=== PATIENT | female | born 1995 ===

== ENCOUNTER 2020-06-22 16:00 | Outpatient (REF) | payer OTHER, SELFPAY | END 2020-06-22 16:01 | disposition home or self-care (01) | LOC: HO.LAB 16:00 | PROVIDERS: Visit Provider Internal Medicine | DX: Z20.828 Contact with and (suspected) exposure to other viral communicable diseases (principal) | CPT/HCPCS: C9803; U0003 ==

== ENCOUNTER 2020-08-06 00:10 | Emergency (ER) | payer OTHER, SELFPAY ==
[2020-08-06 01:15] VITALS: PULSE 102; RESP 100; TEMP 37.3; BMI 26.9
--- NOTE | 2020-08-06 01:46 | ED_ITS ---
HPI - URI/Sore Throat General Chief Complaint: Fever Stated Complaint: COVID SYMPTOMS Time Seen by Provider: 08/06/20 01:45 Source: patient Mode of arrival: ambulatory Limitations: no limitations History of Present Illness HPI Narrative: Patient been feeling weak body aches stuffy nose for last 2 days had low-grade fever temperature of 99 degrees today no COVID-19 contact no shortness of breath no cough MD elicited complaint: fever (Subjective), rhinorrhea and nasal congestion Related Data Allergies Allergy/AdvReac Type Severity Reaction Status Date / Time penicillin G Allergy Unknown Verified 01/27/20 00:00 Penicillins [PENICILLINS] Allergy Unknown UNKNOWN Unverified 04/20/20 19:37 Review of Systems Review of Systems: Yes all other systems are reviewed and are negative [facility] Past Medical History Medical History Asthma Social History Social History Advance Directives: No Advance Directives Information Provided: No Physical Exam Vital Signs: Vital Signs: Last Vital Signs Temp 99.1 F 08/06/20 01:15 Pulse 102 H 08/06/20 01:15 Resp 100 H 08/06/20 01:15 Body Mass Index 26.9 Appearance: Alert. Oriented X3. No acute distress. Eyes: Pupils equal, round and reactive to light. ENT: Pharynx normal. Clear rhinorrhea Neck: Normal inspection. Neck supple. CVS: Normal heart rate and rhythm. Pulses normal. Respiratory: No respiratory distress. Breath sounds normal. Abdomen: Soft and nontender. Bowel sounds are present, no mass palpable, no CVA tenderness Skin: Skin warm and dry. Normal skin color. Normal skin turgor. Extremities: No lower extremity edema. Neuro: Oriented X 3. No motor deficit. No sensory deficit. Course Course Course Narrative: Patient has symptoms of COVID infection but rapid COVID test was negative will do the PCR test for COVID RSV and influenza patient advised to have keep social distancing and follow with PCP MDM - URI/Sore Throat Differential Diagnosis Differential diagnosis: Likely upper respiratory infection Medical Records Attestation: I reviewed the patient's medical records. Lab Data Attestation: I reviewed the patient's lab results. Labs: Lab Results 08/06/20 Range/Units 02:18 COVID-19 (JORDIN) Negative (Negative) COVID-19 Clin Com See Note Discharge Plan Discharge Clinical Impression: COVID-19 Patient Disposition: Home, Self-Care Instructions: COVID-19 (Coronavirus Disease 2019) (ED) Additional Instructions: Although your COVID test is negative is still keep cautions and keep social distancing Aunque tu prueba de COVID sea negativa, sigue siendo precavido y mant?n el distanciamiento social Print Language: Icelandic
[2020-08-06 03:04] LABS: COVID-19 Test Negative (Negative)
== END 2020-08-06 03:43 | disposition home or self-care (01) ==
PROVIDERS: Emergency Provider Internal Medicine; PCP Internal Medicine
DX: U07.1 COVID-19 (principal); R50.9 Fever, unspecified
CPT/HCPCS: 87635; 99283

== ENCOUNTER 2021-01-23 14:41 | Outpatient (REF) | payer OTHER, SELFPAY | END 2021-01-23 14:42 | disposition home or self-care (01) | LOC: HO.LAB 14:41 | PROVIDERS: PCP Internal Medicine; Visit Provider Internal Medicine | DX: Z20.822 Contact with and (suspected) exposure to COVID-19 (principal) | CPT/HCPCS: C9803; U0003; U0005 ==

== ENCOUNTER 2021-03-22 09:13 | Outpatient (REF) | payer OTHER, SELFPAY ==
[2021-03-22 16:45] LABS: CT PCR NOT DETECTED (Not Detect.); NG PCR NOT DETECTED (Not Detect.)
[2021-03-23 08:09] LABS: HBsAGNum1 0.13 S/CO (0.00-0.99); Hepatitis B Surface Antigen Negative (Negative); ~HepC Num1 0.12 S/CO (0.00-0.79); ~Hepatitis C Antibody Nonreactive (Nonreactive)
[2021-03-23 08:18] LABS: HIV AB/AG Nonreactive (Nonreactive); HIV Num 1 0.05 S/CO (0.00-0.99)
[2021-03-23 08:26] LABS: Herpes Simplex Type 2 IgG <0.90 index
[2021-03-23 08:35] LABS: Syphilis Screen Nonreactive (Nonreactive)
[2021-03-23 09:25] LABS: BV Int Neg Control Negative (Negative); BV Int Pos Control Positive (Positive)
== END 2021-03-22 09:14 | disposition home or self-care (01) ==
LOC: HO.LAB 09:13
PROVIDERS: PCP Internal Medicine; Visit Provider Advanced Practice Midwife
DX: Z01.419 Encounter for gynecological examination (general) (routine) without abnormal findings (principal); Z01.84 Encounter for antibody response examination; Z11.4 Encounter for screening for human immunodeficiency virus [HIV]; Z11.3 Encounter for screening for infections with a predominantly sexual mode of transmission; Z11.59 Encounter for screening for other viral diseases; Z20.828 Contact with and (suspected) exposure to other viral communicable diseases; Z20.2 Contact with and (suspected) exposure to infections with a predominantly sexual mode of transmission; Z98.51 Tubal ligation status
CPT/HCPCS: 36415; 86695; 86696; 86780; 86803; 87340; 87389; 87480; 87491; 87510; 87591; 87660

== ENCOUNTER → 2021-04-17 15:28 | Outpatient (BNVA) | payer OTHER, SELFPAY | PROVIDERS: Visit Provider Advanced Practice Midwife ==

== ENCOUNTER 2021-07-14 22:12 | Emergency (ER) | payer OTHER, SELFPAY ==
[2021-07-14 22:43] VITALS: BP 100/66; PULSE 95; RESP 16; TEMP 37.3; O2SAT 99; BMI 21.6
[2021-07-14 23:08] LABS: COVID-19 Test Positive (Negative); IDNOW Serial# 9DD0AD1C
--- NOTE | 2021-07-14 23:58 | ED.URI ---
HPI - URI/Sore Throat General Chief Complaint: General Medical Stated Complaint: flu like symptoms Time Seen by Provider: 07/14/21 23:36 Source: patient Mode of arrival: ambulatory Limitations: no limitations History of Present Illness HPI Narrative: Patient vaccinated against COVID-19 in 11/22 been complaining of cough body aches for last 4 days patient daughter is also sick with same and is COVID positive. Patient denies any shortness of breath saturating 99% at room air low-grade fever 99.2 patient does have history of asthma Related Data Allergies Allergy/AdvReac Type Severity Reaction Status Date / Time penicillin G Allergy Unknown Unknown Verified 04/17/21 15:52 Review of Systems Review of Systems: Yes all other systems are reviewed and are negative [facility] Past Medical History Medical History Acne Asthma Vitiligo Surgical History History of tubal ligation Social History Social History Household Members: Children Alcohol intake: never Patient Tobacco Use Status: Never used Tobacco Advance Directives: No Advance Directives Information Provided: Yes Patient : No Physical Exam Vital Signs: Vital Signs: Last Vital Signs Temp 99.2 F 07/14/21 22:43 Pulse 95 07/14/21 22:43 Resp 16 07/14/21 22:43 BP 100/66 07/14/21 22:43 Pulse Ox 99 07/14/21 22:43 BMI result Body Mass Index 21.6 Appearance: Alert. Oriented X3. No acute distress. Coughing frequently ENT: Pharynx normal. Oral Mucosa moist Neck: Normal inspection. Neck supple. CVS: Normal heart rate and rhythm. Pulses normal. Respiratory: No respiratory distress. Equal air entry bilateral, no wheezing/rales/rhonchi Abdomen: Soft and nontender. Skin: Skin warm and dry. Normal skin color. Normal skin turgor. Extremities: No lower extremity edema. No calf tenderness Neuro: Oriented X 3. MDM - URI/Sore Throat MDM Narrative Medical decision making narrative: Patient COVID-19 positive with no hypoxia with history of asthma discharge home on albuterol inhaler and Decadron advised to come back to the ER if increased shortness of breath Lab Data Attestation: I reviewed the patient's lab results. Labs: Lab Results 07/14/21 Range/Units 22:47 COVID-19 (JORDIN) Positive A (Negative) COVID-19 Clin Com See Note Discharge Plan Discharge Clinical Impression: COVID-19
[2021-07-15] MEDS: Albuterol Sulfate 90 MCG 8 GM INHALER 4 PUFF INHALE (00:06)
[2021-07-15 00:11] VITALS: PULSE 107; RESP 16; O2SAT 99
[2021-07-15] MEDS: guaiFEN/Codeine SF 200/20/10ML 10 ML LIQUID PO (00:47)
[2021-07-15] MEDS: dexAMETHasone 6 MG TABLET PO (00:47)
== END 2021-07-15 00:59 | disposition home or self-care (01) ==
PROVIDERS: Emergency Provider Internal Medicine; PCP Internal Medicine
DX: U07.1 COVID-19 (principal); M79.10 Myalgia, unspecified site; J45.909 Unspecified asthma, uncomplicated
CPT/HCPCS: 36415; 87635; 94640; 99283; 99284; J8540

== ENCOUNTER → 2021-08-17 14:22 | Outpatient (BNVA) | payer OTHER, SELFPAY | PROVIDERS: PCP Internal Medicine; Visit Provider Advanced Practice Midwife | DX: L73.8 Other specified follicular disorders (principal) | CPT/HCPCS: 99212 ==

== ENCOUNTER 2022-10-17 14:38 | Outpatient (REF) | payer OTHER, SELFPAY ==
[2022-10-18 11:15] LABS: BV Int Neg Control Negative (Negative); BV Int Pos Control Positive (Positive)
[2022-10-18 11:59] LABS: CT PCR NOT DETECTED (Not Detect.); NG PCR NOT DETECTED (Not Detect.)
== END 2022-10-17 14:39 | disposition home or self-care (01) ==
LOC: HO.LNP 14:38
PROVIDERS: PCP Internal Medicine; Visit Provider Advanced Practice Midwife
DX: Z01.419 Encounter for gynecological examination (general) (routine) without abnormal findings (principal); K64.9 Unspecified hemorrhoids; Z20.2 Contact with and (suspected) exposure to infections with a predominantly sexual mode of transmission
CPT/HCPCS: 0353U; 87480; 87510; 87660; 88142

== ENCOUNTER 2023-10-26 11:54 | Emergency (ER) | payer OTHER, SELFPAY ==
[2023-10-26 11:59] VITALS: BP 113/75; PULSE 100; RESP 16; TEMP 36.2; O2SAT 98; BMI 25.9
--- NOTE | 2023-10-26 11:59 | ED_ITS ---
HPI - Nausea/Vomiting/Diarrhea General Chief complaint: Nausea/Vomiting/Diarrhea Stated complaint: Diarrhea/Vomiting Time Seen by Provider: 10/26/23 14:31 Related Data Previous Rx's Medication Instructions Recorded albuterol sulfate 90 mcg/actuation 2 puff inhalation Q4-6H PRN 07/15/21 aerosol inhaler (ProAir HFA) shortness of breath or wheezing #8.5 grams bismuth subsalicylate 262 mg/15 mL 524 mg (30 mL) PO Q30M PRN 10/26/23 oral suspension (Pepto-Bismol) diarrhea #354 mL Allergies Allergy/AdvReac Type Severity Reaction Status Date / Time penicillin G Allergy Unknown Unknown Verified 10/26/23 11:59 [facility] Past Medical History Medical History Acne Asthma Vitiligo Surgical History History of tubal ligation Family History Family History (Updated 10/17/22 @ 14:45 by RONDA Hurley) Maternal Aunt Breast cancer Social History Social History Household Members: Children Alcohol intake: never Patient Tobacco Use Status: Never used Tobacco Advance Directives: No Advance Directives Information Provided: Yes Physical Exam 2 Vital Signs: Vital Signs: Last Vital Signs Temp 99 F 10/26/23 15:12 Pulse 91 10/26/23 15:12 Resp 16 10/26/23 15:12 BP 105/71 10/26/23 15:12 Pulse Ox 99 10/26/23 15:12 O2 Del Method Room Air 10/26/23 15:12 BMI result Body Mass Index 25.9 Course Course Course Narrative: RME: 27 yo female hx of HSV here for eval of?diarrhea x3 days along w/ nausea, vomiting, and intermittent epigastric abd pain that began after vomiting x2 days. no sick contacts. denies consuming bad food. did not get flu vaccine this year. serology and labs ordered. Full HPI, ROS and PE to be performed by the primary ED provider. Labs were not diagnostic, CBC and chemistry without any significant acute abnormalities, serology testing for COVID and flu was negative Patient is mildly nauseous now but not vomiting and tolerates p.o. easily and is not dehydrated She has had 3 days of watery diarrhea with frequency diminishing since yesterday She likely has either food poisoning or a viral gastroenteritis, her stomach was nontender She is advised to stay well hydrated as this is likely to resolve on its own but as she has no primary doctor if it is failing to improve in 3 or 4 days she will return for repeat evaluation Medical Decision Making Lab Data 10/26/23 12:47 10/26/23 12:47 Labs: Lab Results 10/26/23 Range/Units 12:47 WBC 7.2 (4.8-10.8) X10*3/uL RBC 4.82 (4.20-5.50) X10*6/uL Hgb 14.1 (12.0-16.0) g/dl Hct 41.5 (37.0-47.0) % MCV 86.1 (80.0-98.0) fL MCH 29.3 (27.0-33.0) pg MCHC 34.0 (31.0-35.0) g/dl RDW 12.1 (11.0-16.0) % Plt Count 253 (160-400) X10*3/uL MPV 10.0 (9.4-12.3) fL Immature Gran % (Auto) 0.3 (0.0-0.4) % Neut % (Auto) 67.4 (45-73) % Lymph % (Auto) 18.1 L (20-40) % [place] % (Auto) 13.8 H (2-11) % Eos % (Auto) 0.3 (0-4) % Baso % (Auto) 0.1 (0-2) % Lymph # (Auto) 1.3 (1.2-4.9) X10*3/uL [place] # (Auto) 1.0 (0.1-1.2) X10*3/uL Eos # (Auto) 0.0 (0.0-0.4) X10*3/uL Baso # (Auto) 0.0 (0.0-0.2) X10*3/uL Abs Immat Gran (auto) 0.02 (0.00-0.03) X10*3/uL Absolute Neuts (auto) 4.8 (2.0-8.3) x10*3/uL Absolute Nucleated RBC 0.000 (0.0-0.012) X10*3/uL Nucleated RBC % (auto) 0.0 (0.0-0.2) /100WBC Sodium 139 (135-145) mmol/L Potassium 3.8 (3.3-5.1) mmol/L Chloride 105 (96-108) mmol/L Carbon Dioxide 25 (22-29) mmol/L Anion Gap 13 (12-20) BUN 13 (9-16) mg/dL Creatinine 0.88 (0.5-1.4) mg/dL Estim Creat Clear Calc 86.2 Estimated GFR > 60 Random Glucose 89 (60-115) mg/dL Calcium 9.2 (8.4-10.2) mg/dL Magnesium 2.1 (1.6-2.6) mg/dL Total Bilirubin 0.3 (0.0-1.0) mg/dL AST 29 (5-31) U/L ALT 18 (0-31) U/L Alkaline Phosphatase 94 (39-117) U/L Total Protein 8.1 H (6.5-8.0) g/dL Albumin 4.4 (3.5-5.0) g/dL Lipase 21 (8-78) U/L Beta HCG, Quant < 2 mIU/mL Influenza Type A (PCR) NEGATIVE (Negative) Influenza Type B (PCR) NEGATIVE (Negative) RSV RNA Qual (PCR) NEGATIVE (Negative) SARS-CoV-2 RNA (RT-PCR) NEGATIVE (Negative) Discharge Plan Discharge Clinical Impression: Gastroenteritis Patient Disposition: Home, Self-Care Additional Instructions: diarrhea is usually self-limited As you have tried Imodium and it did not work you can try Pepto-Bismol Most important to stay well hydrated If symptoms are not better in 3 days follow with your doctor or return to the ER for further evaluation If symptoms worsen, if you feel you are dehydrated or experiencing abdominal pain or any worse condition or concern return to the ER any time Prescriptions: New bismuth subsalicylate [Pepto-Bismol] 262 mg/15 mL suspension 524 mg PO Q30M PRN (Reason: diarrhea) Qty: 354 0RF Rx Instructions: do not exceed 8 doses in a 24 hour period/ maximum 2 days No Action albuterol sulfate [ProAir HFA] 90 mcg/actuation HFA aerosol inhaler 2 puff inhalation Q4-6H PRN (Reason: shortness of breath or wheezing) Qty: 8.5 0RF Stand Alone Forms: Work/School Release
[2023-10-26 12:51] LABS: MANUAL DIFF FLAG NO
[2023-10-26 13:00] LABS: Basophils Percent Auto 0.1 % (0-2); Eosinophils Percent Auto 0.3 % (0-4); Hematocrit 41.5 % (37.0-47.0); Hemoglobin 14.1 g/dl (12.0-16.0); Imm Gran Abs Auto 0.02 X10*3/uL (0.00-0.03); Imm Gran Pct Auto 0.3 % (0.0-0.4); Lymphocytes Absolute Auto 1.3 X10*3/uL (1.2-4.9); Lymphocytes Percent Auto 18.1 % (20-40); Mean Corpuscular Hemoglobin 29.3 pg (27.0-33.0); Mean Corpuscular Volume 86.1 fL (80.0-98.0); Monocytes Percent Auto 13.8 % (2-11); Neutrophils Absolute Auto 4.8 x10*3/uL (2.0-8.3); Neutrophils Percent Auto 67.4 % (45-73); Platelet Count 253 X10*3/uL (160-400); Red Blood Count 4.82 X10*6/uL (4.20-5.50); Red Cell Distribution Width 12.1 % (11.0-16.0); White Blood Count 7.2 X10*3/uL (4.8-10.8)
[2023-10-26 13:10] LABS: Alanine Aminotransferase 18 U/L (0-31); Albumin Level 4.4 g/dL (3.5-5.0); Alkaline Phosphatase 94 U/L (39-117); Anion Gap 13 (12-20); Aspartate Amino Transferase 29 U/L (5-31); Bilirubin Total 0.3 mg/dL (0.0-1.0); Blood Urea Nitrogen 13 mg/dL (9-16); Calcium 9.2 mg/dL (8.4-10.2); Carbon Dioxide 25 mmol/L (22-29); Chloride 105 mmol/L (96-108); Creatinine Clr Calc Pharmacy 86.2; Estimated Glomerular Filt Rate > 60; Glucose Random 89 mg/dL (60-115); Lipase 21 U/L (8-78); Magnesium 2.1 mg/dL (1.6-2.6); Potassium 3.8 mmol/L (3.3-5.1); Sodium 139 mmol/L (135-145); Total Protein 8.1 g/dL (6.5-8.0)
[2023-10-26 13:34] LABS: Influenza A PCR NEGATIVE (Negative); Influenza B PCR NEGATIVE (Negative); Resp Syncy Virus RNA Qual PCR NEGATIVE (Negative); SARS COV2 PCR INHOUSE NEGATIVE (Negative)
[2023-10-26 14:13] LABS: HCG Quantitative < 2 mIU/mL
[2023-10-26 15:12] VITALS: BP 105/71; PULSE 91; RESP 16; TEMP 37.2; O2SAT 99
[2023-10-26] MEDS: Ondansetron ODT 4 MG TAB.RAPDIS TRANSLINGU (16:11)
[2023-10-26 16:36] VITALS: BP 105/71; PULSE 91; RESP 16; TEMP 37.3; O2SAT 99
== END 2023-10-26 16:37 | disposition home or self-care (01) ==
PROVIDERS: Physician Assistant Medical; Emergency Provider Emergency Medicine; PCP Internal Medicine
DX: K52.9 Noninfective gastroenteritis and colitis, unspecified (principal); Z11.52 Encounter for screening for COVID-19; Z20.828 Contact with and (suspected) exposure to other viral communicable diseases
CPT/HCPCS: 0241U; 36415; 80053; 83690; 83735; 84702; 85025; 99283

== ENCOUNTER 2024-04-02 13:33 | Outpatient (AMB) | payer OTHER, SELFPAY ==
[2024-04-02 13:34] VITALS: BP 100/68; PULSE 70; O2SAT 98; BMI 27.3
--- NOTE | 2024-04-02 13:34 | MHC.PC.OV ---
Vital Signs 04/02/24 13:34 Height 5 ft 3 in Weight 154 lb BMI 27.3 BP 100/68 Blood Pressure Location Lt brachial Position Sitting Pulse 70 Pulse Source Pulse Oximeter Pulse Oximetry (%) 98 Oxygen Delivery Method Room Air Intake Visit Reasons: Establish care/bleeds when she moves her bowels Mixing Technician Required: Yes Mixing Technician Language: Slovenian Allergies penicillin G Allergy (Unknown, Verified 04/02/24 13:53) Unknown Medication List - Last Reconciled 04/02/24 by Shi Joaquin PA-C albuterol sulfate 90 mcg/actuation (ProAir HFA) 2 puffs inhalation Q4-6H PRN Tobacco use date assessed: 04/02/24 Dental Screening Dental Screen Date: 04/02/24 Did you have a dental visit in the last 12 months?: Yes Did you have a dental problem in the last 6 months where you did not have access to dental care?: No Was dental information given to patient?: Patient has dentist HPI Establish care/bleeds when she moves her bowels HPI Details 28-year-old female with past medical history of asthma coming to the office with a first-time. Patient states she is feeling generally well however does have a few concerns. She has a small lesion on her shoulder and is unsure of what this is but has been present for several years and does not bleed and is not painful. She also mentions she has a history of hemorrhoids 13 years ago with her daughter and has not had them since. However she does have in the last 3 days bright red blood in the toilet after a bowel movement. She also mentioned in the last 3 days she has been much more constipated and she does not have a history of constipation. [facility] Medical History (Updated 04/02/24 @ 14:01 by Shi Joaquin PA-C) Vitiligo Acne Asthma Surgical History History of tubal ligation Family History Maternal Aunt Breast cancer Social History Household Members: Children Alcohol intake: never Patient Tobacco Use Status: Never used Tobacco service: No Current occupational status: employed Cognitive needs: No Hearing needs: No Vision needs: No Female Reproductive History Menstrual Age of Menarche: 9 control method: none Total pregnancies: 2 Full term: 2 Questionnaire PHQ-9 Over the last 2 weeks, how often have you been bothered by any of the following problems? 1. Little interest or pleasure in doing things: not at all 2. Feeling down, depressed, or hopeless: not at all 3. Trouble falling or staying asleep, or sleeping too much: not at all 4. Feeling tired or having little energy: not at all 5. Poor appetite or overeating: not at all 6. Feeling bad about yourself - or that you are a failure or have let yourself or your family down: not at all 7. Trouble concentrating on things, such as reading the newspaper or watching television: not at all 8. Moving or speaking so slowly that other people could have noticed. Or the opposite - being so fidgety or restless that you have been moving around a lot more than usual: not at all 9. Thoughts that you would be better off or of hurting yourself in some way: not at all Total score: 0 Depression Screening Interpretation: Negative Depression Screening Done: Yes 66715 - PHQ-9 Billing: Yes Source: Developed by Drs. Suman Kaur, Tran Puentes, Tien Saenz and colleagues, with an educational charlene from [employer] Thrive Questionnaire Date Thrive assessed: 04/02/24 I am a: Parent/Caregiver What is your living situation today?: I have a steady place to live Within the past 12 months, did the food you bought not last and you didn't have the money to get more?: Never true Within the past 12 months, did you worry whether your food would run out before you got money to buy more?: Never true Do you have trouble paying for medicines?: No Do you have trouble getting transportation to medical appointments?: No Do you have trouble paying your heating and electricity bill?: No Do you have trouble taking care of your child, family member or friend?: No Do you have trouble with day-to-day activities such as bathing, preparing meals, shopping, managing finances, etc.?: No Are you currently unemployed and looking for a job?: No Are you interested in more education?: No Please select the resources that you would like help with: None Currently or been in a relationship where the following occur: No concerns reported THRIVE Score: 0 AUDIT C Alcohol Use Questionnaire (AUDIT-C) 1. How often do you have a drink containing alcohol?: Never 3. How often do you have six or more drinks on one occasion?: Never Total Score: 0 JUN-7 AMB Questionnaire JUN-7 Date JUN - 7 assessed: 04/02/24 Feeling nervous, anxious, or on edge: 0 = Not at all Not being able to stop or control worryin = Not at all Worrying too much about different things: 0 = Not at all Trouble relaxin = Not at all Being so restless that it is hard to sit still: 0 = Not at all Becoming easily annoyed or irritable: 0 = Not at all Feeling afraid as if something awful might happen: 0 = Not at all Total JUN-7 score (0-4 normal; 5-9 mild; 10-14 moderate; 15-21 severe): 0 Source: Developed by Drs. Suman Kaur, Tran Puentes, Tien Saenz and colleagues, with an educational charlene from [employer] JUN-7 Assessment Billing JUN-7 Assessment Tool: JUN-7 Assessment 36176 Review of Systems Const Denies body aches, Denies fatigue, Denies fever(s), Denies frequent falls, Denies headache(s) and Denies weakness Eyes Reports no additional complaints and Denies change in vision ENT Denies dysphagia, Denies dizziness, Denies facial pain, Denies headache(s), Denies nasal congestion and Denies odynophagia Card Denies chest pain, Denies syncope, Denies irregular heart rhythm, Denies leg edema, Denies lightheadedness and Denies dyspnea Resp Denies cough and Denies dyspnea GI Reports hematochezia, Reports constipation, Denies dysphagia, Denies dyspepsia, Denies diarrhea, Denies nausea, Denies odynophagia and Denies vomiting Denies urinary frequency, Denies dysuria, Denies urinary hesitancy and Denies urinary urgency Musc Denies back pain and Denies myalgias Skin/Breast Reports as per HPI Neuro Denies dizziness, Denies syncope, Denies frequent falls, Denies headache(s) and Denies weakness Psych Reports no additional complaints Endo Denies fatigue Physical exam (Primary Care) Vital Signs: Last Vital Signs Pulse 70 04/02/24 13:34 BP 100/68 04/02/24 13:34 Pulse Ox 98 04/02/24 13:34 Oxygen Delivery Method Room Air 04/02/24 13:34 BMI result Body Mass Index 27.3 Tobacco/Smoking Status: Tobacco use Status Tobacco use date assessed 04/02/24 04/02/24 13:42 Patient Tobacco Use Status Never used Tobacco 04/02/24 13:42 PHQ-9: PHQ-9 Score PHQ-9: Total score 0 04/02/24 13:56 Depression Screening Interpretation: Negative Thrive Assessment: Date of Thrive Assessment Date Thrive assessed 04/02/24 04/02/24 13:42 Currently or been in a relationship where the following occur: No concerns reported Const General: cooperative, healthy appearing, comfortable and no acute distress Orientation/consciousness: patient oriented x3 HENMT Head: Yes normocephalic Ears: hearing grossly normal bilaterally, external ears normal, TM's normal bilaterally and EAC's normal General nose exam: Normal external nose present Face and sinus: Yes normal facial exam and Yes sinuses nontender Mouth: Normal oral and palatal mucosa present and tongue normal Throat: Yes posterior oropharynx normal Eyes General: appearance normal, both eyes and all related structures Conjunctivae: conjunctivae normal Pupils: Equal, round and reactive pupils present EOM: EOMs intact bilaterally and No Nystagmus present Neck Neck: Yes normal visual inspection, Yes full ROM and Yes no lymphadenopathy Chest Chest palpation & inspection: normal inspection of the chest Resp Effort & Inspection: normal respiratory effort Auscultation: clear to auscultation bilaterally, no crackles, no rales, no rhonchi, no wheezes and breath sounds present Cardio Rate: regular rate Rhythm: regular rhythm Peripheral pulses: radial pulses present and dorsalis pedis present GI Inspection: Yes normal to inspection and No Abdominal wall edema Palpation (GI): Soft to palpation, not firm and nontender Auscultation: normal bowel sounds Rectal Exam - Female: deferred General: Yes no CVA tenderness Back/Spine/Pelvis Back: no CVA tenderness Skin General skin exam: no rashes or lesions noted Neuro General: patient oriented x3 Cranial nerves: Yes Equal, round and reactive pupils present, Yes Midline tongue present, Yes Ability to bilaterally elevate shoulders present and No Nystagmus present Gait exam (Neuro): Normal gait present Extrem General: Yes normal to inspection, Yes full ROM, No no pedal edema and No edema Psych Speech and movement: Normal speech and movement present Affect: normal affect Insight: Good insight present (Psych) Judgement: Good judgement present (Psych) Assessment and Plan Assessment & Plan (1) Hemorrhoids: Code(s): K64.9 - Unspecified hemorrhoids Plan: Rectal bleeding most consistent with internal hemorrhoids. She has a history of hemorrhoids from her 13 years ago and has no bleeding since then. In the last 3 days she mentions being more constipated and has noticed the bleeding only after the constipation and straining. Sent a prescription for senna to treat constipation. Advised patient that if she continues to have bleeding after constipation is resolved to follow up for further evaluation. (2) Asthma: Code(s): J45.909 - Unspecified asthma, uncomplicated Plan: Patient has inhaler that she uses as needed and has not had to use in the last several weeks. Continue to avoid triggers such as allergens and smoke. (3) Annual physical exam: Code(s): Z00.00 - Encounter for general adult medical examination without abnormal findings Plan: Patient is up-to-date on all recommended routine screenings and vaccinations for her age. Regularly follows with gynecology. Ordered for updated blood work and will follow up in 1 year. (4) Acne: Code(s): L70.9 - Acne, unspecified Plan: Patient has acne scars on her shoulders as well as acne on the face and would like to be evaluated by Dermatology. Previously established with [facility] and referral sent today. Plan This note was constructed using voice recognition software. While every effort has been made to ensure accuracy and customs appraiser, still areas may have been included sometimes these areas may affect the content or meeting of the given symptoms. Total time spent caring for the patient today was 30 minutes. This includes time spent before the visit reviewing the chart, time spent during the visit, and time spent after the visit and documentation. Orders: Orders Complete Blood Count Auto Diff Today Z00.00 - Encounter for general adult medical examination without abnormal findings Lipid Panel Today Z00.00 - Encounter for general adult medical examination without abnormal findings Free T4 (Free Thyroxine) Today Z00.00 - Encounter for general adult medical examination without abnormal findings TSH reflex Free T4 Today Z00.00 - Encounter for general adult medical examination without abnormal findings Vitamin B12 and Folate Today Z00.00 - Encounter for general adult medical examination without abnormal findings Vitamin D 25-OH (D2 and D3) Today Z00.00 - Encounter for general adult medical examination without abnormal findings Comprehensive Met. Panel Today Z00.00 - Encounter for general adult medical examination without abnormal findings Referrals Dermatology Referral L70.9 - Acne, unspecified, L80 - Vitiligo Medications: New sennosides (senna) 8.6 mg PO BEDTIME PRN 20 tabs 0RF constipation Coding Level of Care Code New Pt Prev Care 18-39yr([id number] Diagnoses Hemorrhoids K64.9 Asthma J45.909 Annual physical exam Z00.00 Acne L70.9 Additional Codes JUN-7 Assessment Billing - JUN-7 Assessment Tool: JUN-7 Assessment 32472 ([id number])
== END 2024-04-02 14:16 | disposition home or self-care (01) ==
PROVIDERS: PCP Internal Medicine
DX: Z00.00 Encounter for general adult medical examination without abnormal findings (principal); K64.9 Unspecified hemorrhoids; J45.909 Unspecified asthma, uncomplicated; L70.9 Acne, unspecified
CPT/HCPCS: 99385

== ENCOUNTER 2024-04-10 07:41 | Outpatient (REF) | payer OTHER, SELFPAY ==
[2024-04-10 08:22] LABS: MANUAL DIFF FLAG NO
[2024-04-10 09:00] LABS: Basophils Percent Auto 0.4 % (0-2); Eosinophils Absolute Auto 0.2 X10*3/uL (0.0-0.4); Eosinophils Percent Auto 3.1 % (0-4); Hematocrit 36.6 % (37.0-47.0); Hemoglobin 12.5 g/dl (12.0-16.0); Imm Gran Abs Auto 0.02 X10*3/uL (0.00-0.03); Imm Gran Pct Auto 0.3 % (0.0-0.4); Lymphocytes Absolute Auto 2.1 X10*3/uL (1.2-4.9); Lymphocytes Percent Auto 29.7 % (20-40); Mean Corpuscular HGB Conc 34.2 g/dl (31.0-35.0); Mean Corpuscular Volume 87.8 fL (80.0-98.0); Mean Platelet Volume 10.3 fL (9.4-12.3); Monocytes Absolute Auto 0.6 X10*3/uL (0.1-1.2); Monocytes Percent Auto 8.1 % (2-11); Neutrophils Absolute Auto 4.2 x10*3/uL (2.0-8.3); Neutrophils Percent Auto 58.4 % (45-73); Platelet Count 231 X10*3/uL (160-400); Red Blood Count 4.17 X10*6/uL (4.20-5.50); Red Cell Distribution Width 12.4 % (11.0-16.0); White Blood Count 7.2 X10*3/uL (4.8-10.8)
[2024-04-10 09:55] LABS: Alanine Aminotransferase 15 U/L (0-31); Alkaline Phosphatase 83 U/L (39-117); Anion Gap 11 (12-20); Aspartate Amino Transferase 21 U/L (5-31); Bilirubin Total 0.5 mg/dL (0.0-1.0); Blood Urea Nitrogen 12 mg/dL (9-16); Calcium 9.1 mg/dL (8.4-10.2); Carbon Dioxide 24 mmol/L (22-29); Chloride 107 mmol/L (96-108); Cholesterol 126 mg/dL (<200); Estimated Glomerular Filt Rate > 60; Glucose Random 91 mg/dL (60-115); HDL Cholesterol 42 mg/dL (>40); LDL Cholesterol Calculated 75 mg/dL (<100); Potassium 4.2 mmol/L (3.3-5.1); Sodium 138 mmol/L (135-145); Total Protein 7.3 g/dL (6.5-8.0); Triglycerides 46 mg/dL (<150)
[2024-04-10 10:02] LABS: TSH reflex Free T4 1.77 uIU/mL (0.32-4.0)
[2024-04-10 10:10] LABS: Folate 10.9 ng/mL (> or = 4.0); Vitamin B12 634 pg/mL (200-900)
[2024-04-15 16:39] LABS: Vitamin D 25-OH, D2 <4 ng/mL; Vitamin D 25-OH, D3 28 ng/mL; Vitamin D 25-OH, Total 28 ng/mL (30-100)
== END 2024-04-10 07:42 | disposition home or self-care (01) ==
LOC: HO.LAB 07:41
DX: Z00.00 Encounter for general adult medical examination without abnormal findings (principal)
CPT/HCPCS: 36415; 80053; 80061; 82306; 82607; 82746; 84439; 84443; 85025

== ENCOUNTER 2025-03-16 16:30 | Outpatient (AMB) | payer OTHER, SELFPAY ==
[2025-03-16 16:59] VITALS: BP 88/60; PULSE 67; RESP 18; O2SAT 96; BMI 26.6
--- NOTE | 2025-03-16 16:59 | A.OFFPC_ITS ---
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 Accompanied by: Self / Same As Patient Allergies penicillin G Allergy (Unknown, Verified 03/16/25 17:17) Unknown Medication List - Last Reconciled 03/16/25 by Karen Mcdonald MD albuterol sulfate 90 mcg/actuation (ProAir HFA) 2 puffs inhalation Q4-6H PRN sennosides (senna) 8.6 mg PO BEDTIME PRN Tobacco use date assessed: 03/16/25 Dental Screening Dental Screen Date: 03/16/25 Did you have a dental visit in the last 12 months?: Yes Did you have a dental problem in the last 6 months where you did not have access to dental care?: No Was dental information given to patient?: Patient has dentist HPI HPI Comments History of Present Illness Details The patient is a 29-year-old female presenting for her physical exam. Pap smear done 2022 was normal. Probable Tdap vaccine was 8 years ago. The back pain began approximately one week ago and is described as severe. The patient believes the pain may be related to physical activities at home, although no specific event was identified. The patient has a history of low blood pressure, which has been observed during previous medical evaluations. She denies experiencing dizziness or lightheadedness related to the low blood pressure. The patient has an allergy to penicillin and has undergone a tubal ligation. She does not have a history of diabetes or hypertension and does not use tobacco or alcohol. [facility] Medical History Vitiligo Acne Asthma Surgical History History of tubal ligation Family History (Updated 03/16/25 @ 17:22 by Karen Mcdonald MD) Maternal Aunt Breast cancer Father No problems noted. Mother No problems noted. Social History Household Members: Children Alcohol intake: never Patient Tobacco Use Status: Never used Tobacco e-Cigarette/Vaping Use: Never Used service: No Current occupational status: employed Cognitive needs: No Hearing needs: No Vision needs: No Female Reproductive History Menstrual Age of Menarche: 9 Questionnaire PHQ-9 Over the last 2 weeks, how often have you been bothered by any of the following problems? 1. Little interest or pleasure in doing things: not at all 2. Feeling down, depressed, or hopeless: not at all 3. Trouble falling or staying asleep, or sleeping too much: not at all 4. Feeling tired or having little energy: not at all 5. Poor appetite or overeating: not at all 6. Feeling bad about yourself - or that you are a failure or have let yourself or your family down: not at all 7. Trouble concentrating on things, such as reading the newspaper or watching television: not at all 8. Moving or speaking so slowly that other people could have noticed. Or the opposite - being so fidgety or restless that you have been moving around a lot more than usual: not at all 9. Thoughts that you would be better off or of hurting yourself in some way: not at all Total score: 0 Depression Screening Interpretation: Negative Depression Screening Done: Yes 19260 - PHQ-9 Billing: Yes Source: Developed by Drs. Suman Kaur, Tran Puentes, Tien Saenz and colleagues, with an educational charlene from [employer]. Thrive Questionnaire Date Thrive assessed: 03/16/25 I am a: Patient What is your living situation today?: I have a steady place to live Within the past 12 months, did the food you bought not last and you didn't have the money to get more?: Never true Within the past 12 months, did you worry whether your food would run out before you got money to buy more?: Never true Do you have trouble paying for medicines?: No Do you have trouble getting transportation to medical appointments?: No Do you have trouble paying your heating and electricity bill?: No Do you have trouble taking care of your child, family member or friend?: No Do you have trouble with day-to-day activities such as bathing, preparing meals, shopping, managing finances, etc.?: No Are you currently unemployed and looking for a job?: No Are you interested in more education?: No Please select the resources that you would like help with: None Currently or been in a relationship where the following occur: No concerns reported THRIVE Score: 0 AUDIT C Alcohol Use Questionnaire (AUDIT-C) 1. How often do you have a drink containing alcohol?: Never Total Score: 0 Score Reviewed/Action Taken: No JUN-7 AMB Questionnaire JUN-7 Date JUN - 7 assessed: 03/16/25 Feeling nervous, anxious, or on edge: 0 = Not at all Not being able to stop or control worryin = Not at all Worrying too much about different things: 0 = Not at all Trouble relaxin = Not at all Being so restless that it is hard to sit still: 0 = Not at all Becoming easily annoyed or irritable: 0 = Not at all Feeling afraid as if something awful might happen: 0 = Not at all Total JUN-7 score (0-4 normal; 5-9 mild; 10-14 moderate; 15-21 severe): 0 Source: Developed by Drs. Suman Kaur, Tran Puentes, Tien Saenz and colleagues, with an educational charlene from [employer]. JUN-7 Assessment Billing JUN-7 Assessment Tool: JUN-7 Assessment 97220 Review of Systems Const All systems reviewed & are unremarkable except as noted in HPI and below Card Denies chest pain at rest, Denies chest pain with activity, Denies edema, Denies irregular heart rhythm, Denies claudication, Denies dyspnea, Denies dyspnea on exertion, Denies orthopnea, Denies paroxysmal nocturnal dyspnea and Denies slow heart rate Resp Denies cough, Denies dyspnea and Denies dyspnea on exertion GI Denies abdominal pain, Denies change in bowel habits, Denies excessive flatus, Denies nausea and Denies vomiting Denies urinary incontinence, Denies urinary hesitancy and Denies urinary urgency Musc Denies abnormal gait, Denies atrophy, Denies deformity and Denies limited range of motion Skin/Breast Denies bleeding lesions, Denies changing lesions and Denies rash Neuro Denies abnormal gait and Denies lack of coordination Physical exam (Primary Care) Vital Signs: Last Vital Signs Pulse 67 03/16/25 16:59 Resp 18 03/16/25 16:59 BP 88/60 L 03/16/25 16:59 Pulse Ox 96 03/16/25 16:59 Oxygen Delivery Method Room Air 03/16/25 16:59 BMI result Body Mass Index 26.6 Tobacco/Smoking Status: Tobacco use Status Tobacco use date assessed 03/16/25 03/16/25 17:07 Patient Tobacco Use Status Never used Tobacco 03/16/25 17:07 e-Cigarette/Vaping Use Never Used 03/16/25 17:07 PHQ-9: PHQ-9 Score PHQ-9: Total score 0 03/16/25 17:21 Depression Screening Interpretation: Negative Thrive Assessment: Date of Thrive Assessment Date Thrive assessed 03/16/25 03/16/25 17:07 Currently or been in a relationship where the following occur: No concerns reported HENMT Head: Yes normal to inspection, Yes normocephalic and Yes atraumatic Ears: external ears normal Eyes General: appearance normal, both eyes and all related structures Eyelids: Yes eyelids normal Conjunctivae: conjunctivae normal Neck Neck: Yes normal visual inspection and Yes supple Resp Effort & Inspection: normal respiratory effort Auscultation: clear to auscultation bilaterally Cardio Jugular venous distension: no JVD Rate: regular rate Rhythm: regular rhythm Heart sounds: S1 normal heart sound present and S2 normal heart sound present GI Inspection: Yes normal to inspection Palpation (GI): Soft to palpation and nontender Auscultation: normal bowel sounds Skin General skin exam: no rashes or lesions noted Neuro General: no focal motor deficits Extrem General: Yes full ROM Psych Appearance: grossly normal Coding Level of Care Code Est Pt Prev Care 18-39y(98655) Diagnoses Annual physical exam Z00.00 Additional Codes JUN-7 Assessment Billing - JUN-7 Assessment Tool: JUN-7 Assessment 05869 ([id number]) PHQ-9 - 40297 - PHQ-9 Billing: Yes ([id number]) Time Spent (min) 30 Assessment & Plan Assessment & Plan (1) Annual physical exam: Code(s): Z00.00 - Encounter for general adult medical examination without abnormal findings Category: Medical Plan The patient is instructed to monitor her back pain and avoid activities that could worsen it. Further evaluation may be needed if the pain does not improve. For low blood pressure, the patient should watch for symptoms like dizziness or lightheadedness. If these symptoms develop, further assessment and treatment may be necessary. Patient was informed and verbally consented to the use of an ambient scribe for clinic note documentation during this visit. Orders: Orders Lipid Panel Today Z00.00 - Encounter for general adult medical examination without abnormal findings Comprehensive [place]. Panel Fast Today Z00.00 - Encounter for general adult medical examination without abnormal findings
== END 2025-03-16 17:29 | disposition home or self-care (01) ==
LOC: HO.HMCH 16:31
PROVIDERS: Visit Provider Internal Medicine
DX: Z00.00 Encounter for general adult medical examination without abnormal findings (principal)

== ENCOUNTER → 2025-03-16 16:30 | Outpatient (BNVA) | payer OTHER, SELFPAY | PROVIDERS: Visit Provider Internal Medicine | DX: Z00.00 Encounter for general adult medical examination without abnormal findings (principal); M54.9 Dorsalgia, unspecified | CPT/HCPCS: 96127; 99395 ==

== ENCOUNTER 2025-04-02 07:09 | Outpatient (REF) | payer OTHER, SELFPAY ==
--- OUTSIDE RECORDS SUMMARY | 2025-03-04 10:30 | XMS_ITS | Continuity of Care Document ---
Author Organization [facility] Address [address] [place] [address] [address] [place] [id number] Phone Care Team Providers Care Library Sales Consultant Name Role Phone Azael MARTINI, AMBER, Suman HADDAD Unavailable U navailable Procedures Procedure Date Offic Cons New/estab Mod 40 Mi- CT & [place] Duplex Scan-extrem Veins; Comp- [place] & [place] Advance Directives Directive Yes / No Effective Date File Name No Information Encounters Encounter Description Practice Location Reason(s) For Visit Diagnoses Date Provider Providers Copied on Encounter Offic Cons New/estab Mod 40 Mi- [place] & [place] [facility], [address] [place] [address] Dr Kiser [address]Suite [place]is B[place], [id number], [place] tel:[phone] CVR - [place] Pain in right lower legPain in left lower legPruritus, unspecified 5 Azael MARTINI, AMBER, BOO Will. [address] [facility] [address], [place], [place], [id number] , [place]. tel:[phone] Referring Provider: Karen Jimenez MD, [address] [place] [address] Dr[address], [address] [place] D/B/A: [facility], [place], [place], [address]. tel:[phone] [facility], [address] [place] [address] [address], [id number], [place] tel:[phone] CV[place] Chronic venous hypertension (idiopathic) with other complications of bilateral lower extremity Azael MARTINI, AMBER, BOO Will. [address] [facility], [address], [place], [place], [id number] , . tel:[phone] Referring Provider: Suman Addison MD, AMBER, BOO, [address] [facility] [address], [place], [address]. tel:[phone] Family History Family Member Type Diagnosis Age At Onset No Information Payers Payer name Insurance type Covered alliance party ID Boogie sousa(s) [facility] [id number] Social History Type Description Quantity Date Captured Comments Alcohol Use Details Unknown Caffeine Use Details Unknown Tobacco Use Status Current non-smoker Smoking Status Never Smoker Non-Smoking Tobacco Use Details : No Details Available : No Details Available Sex Female Vital Signs Date / Time: Height Weight BMI Pulse Rate Blood Pressure Temperature Respiratory Rate Body Surface Area Head Circumference Head Circ. Percentile Wt./Rahul. Percentile BMI percentile Pulse Ox Inhaled Ox 67.130 kg (148.00 lbs) 26.2 6 kg/m eter (2) 110/64 mm[Hg] Chief Complaint And Reason For Visit No Information Reason For Referral Reason For Referral No Information Plan Of Treatment Date Type Action Status Goal Diet education completed Referral Ordered: Weight management: Referral to physician timeframe: 3 Months (related to Body mass index (BMI) 26.0-26.9, adult) ordered History Of Present Illness Encounter Date Complaint History Of Prese nt Illness No Information Functional Status Date Functional Assessmen t No Information Instructions Date Instruction Additional Infor mation Compression stocking usage as conservative measure Related to Pain in right lower leg Patient education booklet given Related to Pain in right lower leg Diet education Related to Body mass index (BMI) 26.0-26.9, adult Giving Encouragement to exercise Related to Body mass index (BMI) 26.0-26.9, adult Lifestyle education Related to B ally mass index (BMI) 26.0-26.9, adult Assessments Type Assessment Date No Information Patient Care Teams Name Effective Dates (start - stop) Status Members No Information
[2025-04-02 08:47] LABS: Alanine Aminotransferase 16 U/L (0-31); Albumin Level 4.4 g/dL (3.5-5.0); Alkaline Phosphatase 75 U/L (39-117); Anion Gap 14 (12-20); Aspartate Amino Transferase 45 U/L (5-31); Blood Urea Nitrogen 21 mg/dL (9-16); Calcium 9.0 mg/dL (8.4-10.2); Carbon Dioxide 22 mmol/L (22-29); Chloride 107 mmol/L (96-108); Cholesterol 132 mg/dL (<200); Estimated Glomerular Filt Rate > 60; HDL Cholesterol 53 mg/dL (>40); Potassium 4.1 mmol/L (3.3-5.1); Sodium 139 mmol/L (135-145); Total Protein 7.2 g/dL (6.5-8.0); Triglycerides 37 mg/dL (<150)
== END 2025-04-02 07:10 | disposition home or self-care (01) ==
LOC: HO.LAB 07:09
PROVIDERS: Internal Medicine
DX: Z00.00 Encounter for general adult medical examination without abnormal findings (principal)
CPT/HCPCS: 36415; 80053; 80061